=== PATIENT | female | born 1990 | race African-American/Black ===

== ENCOUNTER 2022-09-13 08:28 | Outpatient (CLI) | payer OTHER, SELFPAY ==
[2022-09-13 14:05] LABS: Albumin* 3.7 g/dL (3.3-5.0)
[2022-09-13 14:07] LABS: Chloride* 105 mmol/L (96-114); Potassium* 4.1 mmol/L (3.6-5.1); Sodium* 140 mmol/L (135-149)
[2022-09-13 14:08] LABS: Bilirubin Total* 0.3 mg/dL (0.1-1.5); Carbon Dioxide* 31 mmol/L (20-32); Cholesterol* 196 mg/dL (90-199); Creatinine* 0.7 mg/dL (0.5-1.5); Estimated Glomerular Filt Rate 118 ml/min
[2022-09-13 14:09] LABS: Alanine Aminotransferase* 16 U/L (4-35); Alkaline Phosphatase* 64 U/L (40-150); Aspartate Amino Transferase* 18 U/L (12-35); Blood Urea Nitrogen* 14 mg/dL (5-24); Calcium* 8.6 mg/dL (8.4-10.6); Glucose* 106 mg/dL (60-115); HDL Cholesterol* 43 mg/dL (>=50); LDL Cholesterol Calculated 133 mg/dL (<100); Triglycerides* 100 mg/dL (40-149)
[2022-09-13 15:05] LABS: Hepatitis C Virus Antibody* Negative (Negative)
== END 2022-09-13 08:29 | disposition home or self-care (01) ==
PROVIDERS: PCP Family Medicine; Visit Provider Family Medicine
DX: Z00.00 Encounter for general adult medical examination without abnormal findings (principal); R73.03 Prediabetes; Z13.6 Encounter for screening for cardiovascular disorders; Z11.59 Encounter for screening for other viral diseases
CPT/HCPCS: 80053; 80061; 86803

== ENCOUNTER 2022-10-18 09:43 | Outpatient (CLI) | payer OTHER, SELFPAY ==
[2022-10-18 16:08] LABS: Chlamydia DNA Amplified* NOT DETECTED (No Detected); GC DNA Amplified* NOT DETECTED (No Detected)
== END 2022-10-18 09:44 | disposition home or self-care (01) ==
LOC: FRMREF 09:44
PROVIDERS: PCP Family Medicine; Visit Provider Family Medicine
DX: N89.8 Other specified noninflammatory disorders of vagina (principal)
CPT/HCPCS: 87491; 87591

== ENCOUNTER 2022-11-24 10:38 | Outpatient (CLI) | payer OTHER, SELFPAY ==
--- NOTE | 2022-11-24 10:45 | CRLHL7_ITS ---
For Patients: As a result of the Century Cures Act, medical imaging exams and procedure reports are released immediately into your electronic medical record. You may view this report before your referring provider. If you have questions, please contact your health care provider. CLINICAL HISTORY: menorrhagia and dyspareunia TECHNIQUE: 2D mcneil scale and color Doppler images were acquired of the pelvis using a transvaginal approach. FINDINGS: The uterus measures 8.3 x 4.8 x 5.5 cm. Cervical nabothian cysts are present measuring up to 8 millimeters. section scar noted. No fibroid. The endometrium measures 4 millimeters. Endometrial fluid is noted. There is a heterogeneous nodule within the mid endometrial canal measuring 8 x 6 x 9 millimeters. The right ovary measures 1.2 x 1.5 x 2.0 cm. The left ovary is not visualized. The right ovary demonstrates normal arterial and venous blood flow on color Doppler analysis. There are no suspicious fluid collections within the cul-de-sac. IMPRESSION: Possible endometrial polyp measuring 8 x 6 x 9 millimeters. Endometrial fluid is present. The endometrial thickness is 4 millimeters. Dictated by Rishabh Griffiths MD @ 11/24/2022 12:05:02 PM (Electronically Signed)
== END 2022-11-24 10:39 | disposition home or self-care (01) ==
LOC: US 10:39
PROVIDERS: PCP Family Medicine; Visit Provider Family Medicine
DX: N92.6 Irregular menstruation, unspecified (principal); N94.10 Unspecified dyspareunia; R93.89 Abnormal findings on diagnostic imaging of other specified body structures
CPT/HCPCS: 76830

== ENCOUNTER 2023-03-21 09:48 | Outpatient (CLI) | payer OTHER, SELFPAY | END 2023-03-21 09:49 | disposition home or self-care (01) | PROVIDERS: PCP Family Medicine; Visit Provider Family Medicine | DX: E11.65 Type 2 diabetes mellitus with hyperglycemia (principal); E66.01 Morbid (severe) obesity due to excess calories; B35.1 Tinea unguium | CPT/HCPCS: 80053; 82043; 82570; 82607; 84156 ==

== ENCOUNTER 2024-03-02 11:42 | Outpatient (CLI) | payer OTHER, SELFPAY | END 2024-03-02 11:43 | disposition home or self-care (01) | PROVIDERS: PCP Family Medicine; Visit Provider Family Medicine | DX: Z01.419 Encounter for gynecological examination (general) (routine) without abnormal findings (principal); E11.65 Type 2 diabetes mellitus with hyperglycemia; E66.01 Morbid (severe) obesity due to excess calories; N92.0 Excessive and frequent menstruation with regular cycle; N92.6 Irregular menstruation, unspecified; Z13.6 Encounter for screening for cardiovascular disorders; Z13.1 Encounter for screening for diabetes mellitus | CPT/HCPCS: 80053; 80061; 82043; 82570 ==

== ENCOUNTER 2024-07-12 06:48 | Outpatient (CLI) | payer OTHER, SELFPAY | END 2024-07-12 06:49 | disposition home or self-care (01) | LOC: FRMREF 06:48 | PROVIDERS: PCP Family Medicine; Visit Provider Family Medicine | DX: E11.65 Type 2 diabetes mellitus with hyperglycemia (principal) | CPT/HCPCS: 80053 ==